=== PATIENT | male | born 1990 | race African-American/Black ===

== ENCOUNTER 2025-06-10 22:52 | Emergency (ER) | payer SELFPAY ==
[2025-06-10 23:15] VITALS: BP 123/87; PULSE 64; RESP 17; TEMP 36.9; O2SAT 97; BMI 25.7
--- NOTE | 2025-06-10 23:17 | ED.WOUNDLAC ---
HPI - Wound/Laceration General Chief Complaint: Wound/Laceration Stated Complaint: sliced rt hand Time Seen by Provider: 06/10/25 23:06 History of Present Illness HPI narrative: 35-year-old male who was doing some dishes and put his hand into a glass jar that broke causing a laceration over the proximal right 1st finger. The patient is unaware of his tetanus status. He does have full range of motion of the finger and denies any sensation loss. Related Data Allergies Allergy/AdvReac Type Severity Reaction Status Date / Time No Known Drug Allergies Allergy Verified 06/10/25 23:15 Review of Systems Review of Systems ROS Unobtainable: All systems reviewed & are unremarkable except as noted in HPI and below Exam Narrative Exam Narrative: General: Patient appears to be in no acute distress, acting appropriately Head: normocephalic, atraumatic, HEENT: Pupils equal round reactive, eyes tracking well, neck supple, no JVD Heart: regular rate and rhythm, no murmurs, rubs, or gallops heard Lungs: clear to auscultation, no adventitious sounds Abdomen: soft , nontender, nondistended, positive bowel sounds Neurological: no focal neurological signs, moving all extremities well, alert and oriented x3, Psych: good judgment ,good insight, mood is normal. rigth hand proximal right first finger and partially into dorsal side of hand has 4-5 cm laceration open wound with some bleeding Initial Vital Signs Initial Vital Signs: Vital Signs Temperature 98.5 F 06/10/25 23:15 Pulse Rate 64 06/10/25 23:15 Respiratory Rate 17 06/10/25 23:15 Blood Pressure 123/87 06/10/25 23:15 Pulse Oximetry 97 06/10/25 23:15 Oxygen Delivery Method Room Air 06/10/25 23:15 Procedures Laceration Repair Laceration 1: Time of procedure: 23:00 Site: hand Side (If applicable): right Size (cm): 4 Description: linear Depth: simple, single layer Local Anesthetic: lidocaine 2% Amount of anesthesia used (mL): 6 Skin layer closed with: nylon Skin layer suture size: 5-0 Number of sutures: 7 Technique: simple, interrupted Course Orders Ordered: Discontinued Medications Diphtheria/Tetanus/Acell Pertussis (Tet,Diph,Pertuss(Acell),Vac/Pf 0.5 Ml Syringe) 0.5 ml IM .ONCE ONE Stop: 06/10/25 23:35 Last Admin: 06/10/25 23:35 Dose: 0.5 ml Documented By: CARRI Tetanus/Diphtheria Toxoids (Tetanus Diphtheria Toxoids 0.5 Ml Vial) 0.5 ml IM .ONCE ONE Stop: 06/10/25 23:20 Vital Signs Vital signs: Vital Signs - 8 hr 06/10/25 23:15 06/11/25 00:49 Temperature 98.5 F Pulse Rate 64 70 Respiratory Rate 17 18 Blood Pressure 123/87 121/83 Pulse Oximetry 97 96 Oxygen Delivery Method Room Air Room Air MDM - Wound/Laceration MDM Narrative Medical decision making narrative: 35-year-old male who was doing some dishes and put his hand into a glass jar that broke causing a laceration of the proximal right 1st finger and partially into the dorsal hand. After cleansing with some sterile saline and making sure there is no foreign material in the laceration, it was repaired as per above wiyth seven simple interrupted sutures. Patient also given a tetanus booster since he does not recall the last time he received one. Advised to look out for any signs of infection and will follow up in 1 week with PCP for suture removal. Discharge Plan Departure Patient Disposition: Home Clinical Impression: Laceration Instructions: DI for Laceration Repair -- Finger Activity Restrictions/Additional Instructions: Keep wound repair area dry for 24 hours. If there is any sign of infection of redness warmth or oozing please come straight back to the ER. Follow up with PCP in approximately 1 week for suture removal. Stand Alone Forms: Patient Portal/API
[2025-06-10] MEDS: TET,DIPH,PERTUSS(ACELL),VAC/PF 0.5 ML SYRINGE IM (23:35)
[2025-06-11 00:49] VITALS: BP 121/83; PULSE 70; RESP 18; O2SAT 96
== END 2025-06-11 00:51 | disposition home or self-care (01) ==
PROVIDERS: Emergency Provider Family Medicine
DX: S61.210A Laceration without foreign body of right index finger without damage to nail, initial encounter (principal); W25.XXXA Contact with sharp glass, initial encounter; Z23 Encounter for immunization
CPT/HCPCS: 12002; 90471; 99283; 90715

== ENCOUNTER 2025-06-19 19:45 | Emergency (ER) | payer SELFPAY ==
--- OUTSIDE RECORDS SUMMARY | 2025-06-19 19:51 | XMS_ITS | Continuity of Care Document ---
Author Name [facility] Organization [facility] Care Team Providers Care Oil Field Pumper Name Role Phone [facility] Unavailable Unavailable Problems Combined list of problems from Department of Defense and Veterans Affairs facilities. It does not include entries that were removed or entered in error. Problem Status Onset Date Problem Type Date of Resolution Comments Source allergic rhinitis Active Condition DoD headache Inactive Condition DoD allergies Active Condition DoD epididymitis left Active Condition ad vised pt of poss std, to avoid sic until well and to advise his sexual partner to get examined, pt to make appt for recheck in 2 weeks [facility] routine history and physical adult (18 - 64 yrs) Inactive Condition DoD joint instability shoulder region Active Condition DoD Other Physical Therapy Inactive Condition DoD flat foot acquired (pes planus) Active Condition bilat, will do insert trial and consult to podiatry for eval and tx options DoD New Patient Age 12-17 School / Camp Physical Inactive Condition DoD Allergies, Adverse Reactions, Alerts Combined list of allergies from Department of Defense and Veterans Affairs facilities. It does not include entries that were removed or entered in error. Substance Category Reaction Severity Reaction type Status Date Reported Comments Source No Known Allergies Drug allergy (disorder) active 11/27/2006 Sintia Bolaños Encounters Combined list of: 1) Encounters from Department of Veterans Affairs facilities going backup to the last 18 months, not all VA inpatient encounters are included; 2) Encounters from the Department of Defense facilities going backup to 280 months. Location Location Details Encounter Type Encounter Number Reason For Visit Attending Provider ADM Date DC Date Status Disposition Source Sintia Bolaños([facility]) OUTPATIENT [id number] 14Y FOR SPORTS PHYSICA L TAWANDA CUADRA 03/01 Released w/o Limitations Sintia Bolaños([facility]) Sintia Bolaños([facility]) OUTPATIENT [id number] 15YO FOOT PAIN X YRS TAWANDA CUADRA 12/26 Released w/o Limitations [facility] OUTPATIENT [id number] Tendoni tis R ayanna r OSMAR HURST 03/03 Released w/o Limitations [facility] ) [facility]) OUTPATIENT [id number] JANETTE MOONEY 03/11 Released w/o Limitations [facility] ) [facility]) OUTPATIENT [id number] MOONEYJANETTE DIAZ 03/13 Released w/o Limitations [facility] ) [facility] OUTPATIENT [id number] 16YO/PE TAWANDA CUADRA 02/11 Released w/o Limitations [facility] OUTPATIENT [id number] 16yo allergi es X3d ZACARIAS ZABALA 11/27 Released w/o Limitations [facility] [place] [id number] INNA THAKUR 01/30 Sick at Home/Quarter s [facility]) OUTPATIENT [id number] POSS SINUS ALLERGI ES X4D SHWETA KIRBY([facility] 12/16 Released w/o Limitations [facility] ) Procedures Combined list of: 1) Procedures from Department of Veterans Affairs facilities going back up to thelast 18 months, not all VA non-surgical procedures are included; 2) All procedures from the Department of Defense facilities. Procedure Procedure Type Code Date Perfomer Comments Sour e Physical Therapy Neuromuscular Re-education Physical Therapy Neuromuscular Re-education [id number] 03/13/2005 JANETTE MOONEY Phys Therapy Education Self Care Training - Per 15 Minutes Phys Therapy Education Self Care Training - Per 15 Minutes [id number] 03/13/2005 JANETTE MOONEY [facility] Physical Therapy Mobilization Joint Physical Therapy Mobilization Joint [id number] 03/13/2005 JANETTE MOONEY [facility] A isted Exercises For ROM Assisted Exercises For ROM [id number] 03/13/2005 JANETTE MOONEY [facility] Phys Therapy Education Self Care Training - Per 15 Minutes Phys Therapy Education Self Care Training - Per 15 Minutes [id number] 03/11/2005 JANETTE MOONEY [facility] Physical Therapy Neuromuscular Re-education Physical Therapy Neuromuscular Re-education [id number] 03/11/2005 JANETTE MOONEY [facility] Physical Therapy Mobilization Joint Physical Therapy Mobilization Joint [id number] 03/11/2005 JANETTE MOONEY [facility] A isted Exercises For ROM Assisted Exercises For ROM [id number] 03/11/2005 JANETTE MOONEY [facility] Physical Therapy Service Evaluation Physical Therapy Service Evaluation [id number] 03/03/2005 OSMAR HURST [facility] Range Of Motion Evaluation Of Extremity Range Of Motion Evaluation Of Extremity [id number] 03/03/2005 OSMAR HURST [facility] Physical Therapy: ___ Se ion Segments, 15 Minutes Each Physical Therapy: ___ Session Segments, 15 Minutes Each [id number] 03/03/2005 OSMAR HURST Physical Therapy Service Re-Evaluation Physical Therapy Service Re-Evaluation [id number] 03/03/2005 OSMAR HURST THERAPEUTIC PROCEDURE,1 OR MORE AREAS,EACH 15 MINUTES;NEUROMUSCULA R REEDUCATION OF MOVEMENT,BALANCE,QUENCHER OPERATOR RDINATION,KINESTHETI C SENSE,POSTURE,AND/OR PROPRIOCEPTION FOR SITTING AND/OR STANDING ACTIVITIES 03/13/2005 [facility] THERAPEUTIC PROCEDURE, 1 OR MORE AREAS, EACH 15 MINUTES; THERAPEUTIC EXERCISES TO DEVELOP STRENGTH AND ENDURANCE, RANGE OF MOTION AND FLEXIBILITY 03/11/2005 [facility] PHYSICAL THERAPY RE-EVALUATION 03/03/2005 [facility] CRUTCHES UNDERARM, WOOD, ADJUSTABLE OR FIXED, PAIR, WITH PADS, TIPS AND HANDGRIPS 07/29/2004 [facility] Social History Combined list of available smoking, tobacco, and other social history from Department of Defense and Veterans Affairs facilities. Social History Type Response Date Comment Sourc e This section is an empty social history section. DoD
[2025-06-19 20:24] VITALS: BP 141/95; PULSE 94; RESP 16; TEMP 37.3; O2SAT 97; BMI 27.8
== END 2025-06-19 21:32 | disposition left against medical advice (07) ==
PROVIDERS: Emergency Provider Student in an Organized Health Care Education/Training Program
DX: Z53.21 Procedure and treatment not carried out due to patient leaving prior to being seen by health care provider (principal)
CPT/HCPCS: 99281